=== PATIENT | female | born 1945 | race Caucasian/White ===

== ENCOUNTER → 2017-03-27 | Outpatient (CLI) | payer BC ==
[2015-07-17 15:00] VITALS: BP 140/69
[~2017-03-27] MED LIST: ASPI-482 PO; CALC625T20 PO; DIAZ5TAB PO; DIPH50CA PO; DOCU100C28 PO; FURO40TA4 PO; HYDR-2766 PO; KRIL500C PO; LACT1CAP24 PO; LISI40TA PO; MULT-658 PO; PANT40TA5 PO; POTA10TA12 PO; TIOT18CA IH; ZOLP10TA PO
--- NOTE | 2017-03-27 16:01 | KCIC ---
CT CHEST WO CONTRAST dated 03/27/2017 3:30 PM Indication: Cough, former smoker, shortness of breath, history of COPD. Comparison: No comparison is available. Technique: Contiguous axial imaging of the chest performed without the administration of intravenous contrast. One or more of the following individualized dose reduction techniques were utilized for this examination: 1. Automated exposure control 2. Adjustment of the mA and/or kV according to patient size 3. Use of iterative reconstruction technique Findings: Heart size within normal limits. No pericardial effusion. Coronary artery calcifications. Mild ectasia of the ascending thoracic aorta measuring up to 3.6 cm transverse diameter. 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 No mediastinal, hilar or axillary lymphadenopathy. There is a low-density nodule of the left lobe thyroid gland measures up to 1.7 cm in size. Central airways are patent. Moderate upper zone emphysema. Noncalcified pulmonary nodule in the right middle lobe adjacent to the minor fissure on image 55 measures 6 mm size. There are also linear bands of opacity in the right middle lobe and lingula that are likely related to scarring. Associated mild reticular nodular tree-in-bud opacities in the right middle lobe and lingula. Calcified granuloma left lower lobe. No consolidation or pleural effusion. Limited images of the upper abdomen are unremarkable. The gallbladder is surgically absent. IMPRESSION: 1. No acute abnormality of chest. 2. Moderate upper zone predominant centrilobular emphysema. 3. Small noncalcified pulmonary nodule in the right middle lobe measuring up to 6 mm in size, indeterminate. Suggest a 6 month follow-up exam to ensure stability. 4. Additional reticular nodular tree-in-bud opacities in the right middle lobe and lingula with associated scarring. This could be chronic. Atypical infection or bronchiolitis is not excluded. 5. Indeterminate low-density nodule of the left lobe thyroid gland measuring 1.7 cm in size. This could be better evaluated with thyroid ultrasound. Electronically signed by: Nirav Pantoja MD (03/27/2017 3:57 PM) [facility]-KC[facility]2
== END | disposition home or self-care (01) ==
LOC: KCIC CT 15:15
PROVIDERS: ATTEND Family Medicine
DX: J43.2 Centrilobular emphysema (principal); I25.10 Atherosclerotic heart disease of native coronary artery without angina pectoris; I77.810 Thoracic aortic ectasia; E04.1 Nontoxic single thyroid nodule; R91.1 Solitary pulmonary nodule; J84.10 Pulmonary fibrosis, unspecified; Z90.49 Acquired absence of other specified parts of digestive tract; Z87.891 Personal history of nicotine dependence
CPT/HCPCS: 71250

== ENCOUNTER → 2017-04-09 | Outpatient (CLI) | payer BC ==
[2015-07-17 15:00] VITALS: BP 140/69
--- NOTE | 2017-04-09 16:36 | KCIC ---
Indication: Thyroid nodule noted on recent CT. The right lobe of the thyroid measures 4.8 x 1.6 x 1.9 cm and the left lobe measures 4.0 x 2.5 x 1.6 cm. Several small hypoechoic nodules on the right are identified, largest in the lower pole approximately 0.9 x 0.8 x 0.5 cm. There is also a small nodule in the lower pole left lobe measuring 0.6 x 1.0 x 0.7 cm. There is a dominant solid mass located within the left lobe measuring 2.6 x 2.2 x 1.6 cm. This does show some peripheral vascularity. No microcalcifications are seen. The isthmus is 2 mm in thickness. IMPRESSION: Bilateral thyroid nodules. There is a dominant solid nodule in the left lobe. Fine-needle aspiration could be performed. Electronically signed by: Chaz Andrade MD (04/09/2017 4:33 PM) [id number]
== END | disposition home or self-care (01) ==
LOC: KCIC US 15:26
PROVIDERS: ATTEND Family Medicine
DX: E04.2 Nontoxic multinodular goiter (principal); R91.1 Solitary pulmonary nodule
CPT/HCPCS: 76536

== ENCOUNTER → 2017-04-23 | Outpatient (CLI) | payer BC ==
[2015-07-17 15:00] VITALS: BP 140/69
[~2017-04-23] MED LIST changes: +AMLO10TA2 PO; +CYCL10TA2 PO; +LOSA50TA6 PO
--- NOTE | 2017-04-23 15:40 | RAD ---
Exam performed: Ultrasound-guided fine-needle aspiration of a left thyroid nodule. Date of service: 04/23/17. Comparison: Thyroid ultrasound from 04/09/17 Discussion: Preliminary scanning identified the left upper lobe solid nodule. Timeout procedure was performed. The procedure was explained to the patient and informed consent was obtained. Using standard aseptic precautions, 5 cc of 1% lidocaine was infiltrated into the skin and deeper tissues. Thereafter 4 passes were made using 25-gauge needles. Aspirates were collected and given to the television news photographer was present during the procedure. She confirmed adequacy of the sample. Dry sterile Band-Aid was applied to the puncture site. Patient tolerated the procedure well and no immediate complication as were encountered. Postprocedure scanning demonstrated no evidence of hematoma formation. Impression: Technically successful fine-needle aspiration of dominant left thyroid nodule. Pathology is pending
--- NOTE | 2017-04-25 14:25 | PATHOLOGY ---
CYTOPATHOLOGY REPORT CLINICAL HISTORY: 2.5 cm left thyroid nodule SPECIMEN(S) RECEIVED: A.Fine needle aspiration,Left thyroid FINAL DIAGNOSIS: Left thyroid nodule fine needle aspiration, smears and cell block: - [place] category II. - Clusters of follicular epithelial cells, few macrophages, and blood identified. COMMENT: The findings are consistent with a benign follicular nodule. Correlate with clinical and radiographic findings. (JPM:rlm; 04/25/2017) PATHOLOGIST: Paco Blanco M.D. REPORT ELECTRONICALLY SIGNED BY: Paco Blanco M.D. DATE/TIME: 04/25/2017 14:24 GROSS PATHOLOGY: A. Fine needle aspiration,Left thyroid: The specimen is labeled "Paulina Mabry" and consists of two fixed slides, two air dried slides and two H and E slides. Thirty mL of clear light pink fluid in fixative from the needle rinse is also submitted and one ThinPrep slide and a alcohol fixed cell block were prepared from this material. (mm 04.24.2017) EMAIL ADMINISTRATOR(S): DURAN Overton(ASCP)IAC INITIAL CPT CODE(S): A; 41595, 19677 Professional services performed by [facility] [place] [address] Technical services performed by [facility] at [address] [place] [address], [address], [place] [address]. PATIENT: PAULINA MABRY /AGE: 1107/23/1945 (Age: 71) SEX: F PATIENT #: [id number] ALT CASE #: SPECIMEN COLLECTION DATE: 04/24/2017 SPECIMEN RECEIVED DATE: 04/24/[address] [facility] [address] [place] [address], [address] [place] [address] PHONE: [phone] DIRECTOR: Dante England M.D. * * * END OF REPORT * * *
== END | disposition home or self-care (01) ==
LOC: US 13:21
PROVIDERS: ATTEND Family Medicine
DX: E04.1 Nontoxic single thyroid nodule (principal)
CPT/HCPCS: 60300; 76942

== ENCOUNTER → 2017-10-24 | Outpatient (CLI) | payer BC | END | disposition home or self-care (01) | LOC: KCIC CT 15:15 | DX: J43.2 Centrilobular emphysema (principal); E04.1 Nontoxic single thyroid nodule; R91.1 Solitary pulmonary nodule; Z87.891 Personal history of nicotine dependence | CPT/HCPCS: 71250 ==

== ENCOUNTER → 2018-01-20 | Outpatient (CLI) | payer BC | END | disposition home or self-care (01) | LOC: KCIC 15:17 | DX: M41.86 Other forms of scoliosis, lumbar region (principal); I70.0 Atherosclerosis of aorta; G89.29 Other chronic pain | CPT/HCPCS: 72110 ==

== ENCOUNTER → 2018-05-08 | Outpatient (CLI) | payer BC ==
[2015-07-17 15:00] VITALS: BP 140/69
[~2018-05-08] MED LIST changes: -AMLO10TA2 PO; +AMLO10TA6 PO; +LISI-130 PO; -LISI40TA PO; -LOSA50TA6 PO; +LOSA50TA7 PO
--- NOTE | 2018-05-08 16:18 | KCIC ---
Examination: CT of the chest without contrast HISTORY: History of lung nodule follow-up COMPARISON: 10/24/2017 TECHNIQUE: Axial CT images of chest were performed without contrast. Coronal and sagittal images also performed. Exposure: One or more of the following individualized dose reduction techniques were utilized for this examination: 1. Automated exposure control 2. Adjustment of the mA and/or kV according to patient size 3. Use of iterative reconstruction technique. FINDINGS: The central airways are patent. The caliber of the aorta grossly appears unremarkable. Aberrant right subclavian artery coursing posterior to the esophagus likely developmental. Mild aortic atherosclerosis. Coronary artery calcifications identified. Solid-appearing nodule measuring 6.5 mm in the right middle lobe of the lung grossly similar to prior exam. Linear airspace opacity identified in the right middle lobe lung likely atelectasis or infiltrate. Moderate bilateral lung emphysematous changes. No evidence of pleural effusion or pneumothorax. The visualized noncontrasted liver, adrenals grossly appears unremarkable. Mild degenerative changes thoracic spine. IMPRESSION: 1. 6.5 mm nodule identified in the right middle lobe of the lung. Unchanged compared to prior exam. 2. Mild linear airspace opacity identified in the right retroareolar likely atelectasis or scarring. 3. Bilateral lung emphysematous changes. Electronically signed by: Herbert Elise MD (05/08/2018 4:15 PM) [id number]
== END | disposition home or self-care (01) ==
LOC: KCIC CT 15:45
PROVIDERS: ATTEND Internal Medicine Pulmonary Disease
DX: I25.10 Atherosclerotic heart disease of native coronary artery without angina pectoris (principal); I70.0 Atherosclerosis of aorta; R91.1 Solitary pulmonary nodule; Z88.2 Allergy status to sulfonamides; Z87.891 Personal history of nicotine dependence; Z90.49 Acquired absence of other specified parts of digestive tract
CPT/HCPCS: 71250

== ENCOUNTER → 2019-06-21 | Outpatient (CLI) | payer BC ==
[2015-07-17 15:00] VITALS: BP 140/69
[~2019-06-21] MED LIST changes: -AMLO10TA6 PO; +AMLO10TA8 PO; -HYDR-2766 PO; +HYDR-2769 PO; +LOSA-73 PO; -LOSA50TA7 PO; -PANT40TA5 PO; +PANT40TA77 PO
--- NOTE | 2019-06-22 11:31 | KCIC ---
CT CHEST WO CONTRAST Indication: Lung nodule Technique: Noncontrast CT imaging was performed of the chest, multiplanar reconstruction images submitted. One or more of the following individualized dose reduction techniques were utilized for this examination: 1. Automated exposure control 2. Adjustment of the mA and/or kV according to patient size 3. Use of iterative reconstruction technique. Comparison: May 08, 2018; March 27, 2017 Findings: Approximate 2 cm hypodense nodule of the left thyroid gland is fairly similar. There is again emphysema. There is no pleural or pericardial effusion, pneumothorax, or infiltrate. 0.6 to 0.7 cm right middle lobe nodule is stable. Somewhat reticular appearing density right middle lobe closer to the lung base is unchanged. There is a small calcified left lower lobe nodule as seen previously. No new suspicious pulmonary nodularity is identified. There is no new infiltrate, pleural pericardial effusion, pneumothorax. Thoracic aortic caliber is within normal limits, stable. Major airways are patent. IMPRESSION: 1. Previously seen right middle lobe nodule and likely component of right middle lobe fibrotic change is unchanged, no new pulmonary nodularity. 2. There is stable hypodense nodule of the left thyroid gland. 3. There is emphysema. Electronically signed by: Rubens Garcia MD (06/22/2019 11:28 AM) [facility]-KCIC1
== END | disposition home or self-care (01) ==
LOC: KCIC CT 14:36
PROVIDERS: ATTEND Internal Medicine Pulmonary Disease
DX: E04.1 Nontoxic single thyroid nodule (principal); J43.9 Emphysema, unspecified; R91.1 Solitary pulmonary nodule
CPT/HCPCS: 71250

== ENCOUNTER → 2020-12-05 | Outpatient (CLI) | payer BC ==
[2015-07-17 15:00] VITALS: BP 140/69
[~2020-12-05] MED LIST changes: +AMLO-187 PO; -AMLO10TA8 PO; -POTA10TA12 PO; +POTASSIUM CHLO10 ME1 PO
[2020-12-05] MEDS: REGADENOSON 0.4 MG/5 ML DISP.SYRIN. IV ONE (11:24)
--- NOTE | 2020-12-05 15:51 | RAD ---
MR#: [id number] Date of Study: 12/05/2020 Ordering Physician: DESHAWN SPRINGER, Referring Physician: KIMBERLY GOODEN Tech: RT Kathryn Valdez) (N) APPROVED REPORT Test Type: Pharmacological Stress Nurse/Tech: JAQUELINE RESENDEZ Test Indications: CHEST PAIN, DYSPNEA Cardiac History: HTN- SEE EMR Medications: SEE EMR Medical History: COPD, EX-SMOKER- SEE EMR Resting ECG: SR Resting Heart Rate: 65 bpm Resting Blood Pressure: 127/50mmHg Pretest Chest Pain: No chest pain Nurse/Tech Notes S1,S2, FAINT MURMUR NOTED, VSS, DENIED CP OR SOA, LUNGS CTA. Consent: The procedure was explained to the patient in lay terms. Informed consent was witnessed. Donovan eout was entered into [employer]. History and Stress Test performed by RT Kathryn Benoit) (N) Pharm. Details Pharmacologic stress testing was performed using 0.4mg per 5ml of regadenoson given intravenously ove r 7-10 seconds. Stress Symptoms PT HAD A BRIEF EPISODE OF SOA, SUBSIDED QUICKLY. VSS. DENIED CHEST PAIN. POST EXERCISE Reason for Termination: Infusion complete Max HR: 85 bpm Max Blood Pressure: 137/41mmHg Blood Pressure response to exercise: Abnormal blood pressure response during stress. Heart Rate response to exercise: WNL Chest Pain: No. Arrhythmia: No. ST Change: No. NO SIGNIFICANT CHANGES NOTED FROM BASESLINE EKG. INTERPRETATION Stress EKG Conclusion: Baseline EKG showed sinus rhythm. No ischemic changes at peak stress. No arr hythmias. Imaging Protocol IMAGE PROTOCOL: Rest Tc-99m/stress Tc-99m 1 day Rest: Stress: Viability: Radiopharm.Tc99m ZaljxdcnmKs25o Sestamibi Dose10.5mCi 31.8mCi Duration 13min. 13min. Img Date 12/05/2020 12/05/2020 Inj-Img Dlmb17cxe. 60min. Rest Admin Site:IV - Right AntecubitalAdministrator:RT Kathryn Valdez)(N) Stress Admin Site: IV - Right AntecubitalAdministrator: Ascencion Moore, RT (R)(N) STRESS DATA End Diast. Vol.58.0mlLVEDV index BSA36.0ml End Syst. Vol.9.0mlLVESV index BSA6.0ml Myocardial Jdif706.0gEject. Mrrwlfan95.0% Stress Scores Regional WT0.00Summed WT5.00 Regional WM0.00Summed WM0.00 Study quality was good. Left Ventricular size was Normal at Rest and Stress. Lung uptake was . Left Ventricular ejection fraction is 84%. The rest and stress images show normal perfusion, normal contraction and thickening. LV Perf. Quant 17 Seg. SSS0.00 17 Seg. SRS0.00 17 Seg. SDS0.00 Stress Defect Extent (% LAD)0.00Rest Defect Extent (% LAD)0.00Rev. Defect Extent (% LAD)0.00 Stress Defect Extent (% LCX) 0.00Rest Defect Extent (% LCX)0.00Rev. Defect Extent (% LCX)0.00 Stress Defect Extent (% RCA)0.00Rest Defect Extent (% RCA)0.00Rev. Defect Extent (% RCA)0.00 Stress Defect Extent (% OTF)0.00Rest Defect Extent (% OTF)0.00Rev. Defect Extent (% OTF)0.00 Conclusion 1. Regadenoson cardioisotope stress test did not show any evidence of ischemia or infarct. 2. Normal left ventricular systolic function with ejection fraction calculated at 84%. 3. Low risk for cardiac events. Signed by : Moo uBi, Electronically Approved : 12/05/2020 15:51:02
--- NOTE | 2020-12-05 16:01 | CARD ---
MR#: [id number] Date of Study: 12/05/2020 Ordering Physician: DESHAWN SPRINGER, Referring Physician: DESHAWN SPRINGER, Tech: Laura Martinez [facility] APPROVED REPORT EXAM: Two-dimensional and M-mode echocardiogram with Doppler and color Doppler. Other Information Quality : Technically LimitedGoodHR: 71bpm Rhythm : NSR INDICATION COPD Dyspnea 2D DIMENSIONS RVDd2.6 (2.9-3.5cm)Left Atrium(2D)3.2 (1.6-4.0cm) IVSd1.4 (0.7-1.1cm)Aortic Root(2D)3.1 (2.0-3.7cm) LVDd3.4 (3.9-5.9cm)LVOT Diameter1.8 (1.8-2.4cm) PWd1.0 (0.7-1.1cm)LVDs2.0 (2.5-4.0cm) FS (%) 39.3 %SV32.8 ml LVEF(%)71.0 (>50%) Aortic Valve AoV Peak Florin.156.1cm/sAoV VTI37.7cm AO Peak GR.9.8mmHgLVOT Peak Florin.128.8cm/s AO Mean GR.5mmHgAVA (VMAX)2.06cm2 Mitral Valve MV E Lasmjefo490.1cm/sMV DECEL XWVY484ei MV A Hdyihkbv64.4cm/sE/A Ratio1.1 Pulmonary Valve PV Peak Oslljtqd374.6cm/s Tricuspid Valve TR P. Iyqemuod056vy/sTR Peak Gr.39mmHg LEFT VENTRICLE The left ventricle is normal size. MIld septal hypertrophy. The left ventricular systolic function is normal. Estimated ejection fraction 65%. There is normal LV segmental wall motion. The left ventric ular diastolic function and filling is normal for age. RIGHT VENTRICLE The right ventricle is normal size. There is normal right ventricular wall thickness. The right ventr icular systolic function is normal. ATRIA The left atrium size is normal. The right atrium size is normal. The interatrial septum is intact wit h no evidence for an atrial septal defect or patent foramen ovale as noted on 2-D or Doppler imaging. AORTIC VALVE The aortic valve is normal in structure and function. Doppler and Color Flow revealed no significant aortic regurgitation. There is no significant aortic valvular stenosis. MITRAL VALVE The mitral valve is normal in structure and function. There is no evidence of mitral valve prolapse. There is no mitral valve stenosis. Doppler and Color-flow revealed mild mitral regurgitation. TRICUSPID VALVE The tricuspid valve is normal in structure and function. Doppler and Color Flow revealed mild to mode rate tricuspid regurgitation. Estimated PAP 43 mmHg. There is no tricuspid valve stenosis. GREAT VESSELS The aortic root is normal in size. PERICARDIAL EFFUSION There is no evidence of significant pericardial effusion. Critical Notification Critical Value: No <Conclusion> The left ventricular systolic function is normal. Estimated ejection fraction 65%. There is normal LV segmental wall motion. Mild mitral regurgitation. Mild to moderate tricuspid regurgitation. Estimated PAP 43 mmHg. There is no evidence of significant pericardial effusion. Signed by : Moo Bui, Electronically Approved : 12/05/2020 16:00:39
== END ==
LOC: NM 09:53
PROVIDERS: ATTEND Internal Medicine Cardiovascular Disease
DX: I08.1 Rheumatic disorders of both mitral and tricuspid valves (principal); R01.1 Cardiac murmur, unspecified
CPT/HCPCS: 78452; 93017; 93306; A9500; J2785